=== PATIENT | male | born 1980 | race Caucasian/White ===

== ENCOUNTER 2019-10-22 15:41 | Emergency (ER) | payer SELFPAY ==
[2019-10-22 15:47] VITALS: BP 134/85; PULSE 78; RESP 16; TEMP 36.7; O2SAT 98; BMI 24.3
--- NOTE | 2019-10-22 16:55 | ED_ITS ---
HPI - Male Genitourinary General: Chief complaint: Urogenital-Male Stated complaint: abd pain Time Seen by Provider: 10/22/19 16:55 History of Present Illness: HPI Narrative: 38-year-old in with left-sided abdominal pain this is fairly sharp earlier to day 10 out of 10 pain that radiated down into his scrotum. Patient reports pains L upper little bit he has noticed some decreased urination and abnormal urination is been a little bit nauseated but hasn't vomited doesn't think conservative fevers never had anything like this is never had a kidney stone he denies any other symptoms. Associated symptoms: Reports nausea; Deny vomiting Review of Systems General: Reports: 10 or more systems reviewed and unremarkable except in HPI and below GI: Reports: abdominal pain and nausea; Denies: vomiting, heartburn or change in bowel habits : Reports: flank pain, difficulty urinating, change in urine stream, oliguria and testicular pain Skin/Breast: Denies: rash or pruritus Physical Exam Const: COMMON NORMALS: no acute distress, average body habitus, patient oriented x3, no limitations, healthy appearing, alert and well nourished HENMT: COMMON NORMALS: normocephalic HEAD & SCALP: normocephalic Eye: COMMON NORMALS: Equal, round and reactive pupils present, EOMs intact bilaterally and conjunctivae normal CONJUNCTIVA: Yes conjunctivae normal PUPIL: Yes Equal, round and reactive pupils present Neck/C-Spine: COMMON NORMALS: full ROM, no lymphadenopathy, supple, no meningeal signs, no JVD, Thyroid normal and No carotid bruits THYROID: Thyroid normal Chest: COMMONS NORMALS: normal inspection of the chest and normal palpation of entire chest wall Resp: COMMON NORMALS: normal respiratory effort, No retractions, No use of accessory muscles, clear to auscultation bilaterally and percussion normal AUSCULTATION: clear to auscultation bilaterally PERCUSSION: percussion normal Cardio: COMMON NORMALS: no JVD GI: COMMON NORMALS: Normal to inspection, nondistended, normoactive bowel sounds present, Soft to palpation, non-tender, No hepatosplenomegaly present, no masses and no bruits PALPATION: Yes Soft to palpation and Yes No hepatosplenomegaly present : COMMON NORMALS: Yes no CVA tenderness BLADDER/KIDNEY EXAM: Yes no CVA tenderness Back/Pelvis: COMMON NORMALS: no CVA tenderness Extremity: COMMON NORMALS: normal to inspection, full ROM, capillary refill normal, no joint enlargement, no clubbing, cyanosis or edema, no calf tenderness and no pedal edema Neuro: COMMON NORMALS: patient oriented x3 SENSORIUM/ORIENTATION: Yes alert MENINGEAL SIGNS: Yes no meningeal signs Skin: COMMON NORMALS: no rashes or lesions noted, no wounds, turgor normal, no jaundice, no petechiae and no mottling GENERAL SKIN EXAM: no rashes or lesions noted and turgor normal Course Vital Signs: Vital signs: Vital Signs Temperature 98.1 F 10/22/19 15:47 Pulse Rate 67 10/22/19 19:00 Respiratory Rate 18 10/22/19 19:00 Blood Pressure 127/67 10/22/19 19:00 Pulse Oximetry 100 10/22/19 19:00 MDM - Male MDM Narrative: Medical decision making narrative: discussed differential diagnosis includes ureterolithiasis among others and recommend a CT scan patient had some blood in the urine CT scan was suggestive of maybe a recently passed stone. This could be consistent with his history and physical he was resting comfortably without any pain when I went in there last time. We discussed the likely diagnosis as well some the diagnostic uncertainty the importance of follow-up. He'll need to follow-up with primary care for repeat urinalysis. Return precautions were discussed. Lab Data: Labs: Lab Results 10/22/19 10/22/19 10/22/19 Range/Units 17:40 17:40 18:53 WBC 6.6 (4.0-10.0) 10^3/ uL RBC 4.17 (4.1-5.3) 10^6/u L Hgb 14.6 (11.7-16.6) g/dL Hct 42.3 (42.0-52.0) % MCV 101.4 H (80-94) fL MCH 35.0 H (28.0-34.0) pg MCHC 34.5 (30.0-36.0) g/dL RDW 11.9 L (12.1-15.1) % Plt Count 144 (130-400) 10^3/c mm MPV 12.7 H (7.4-10.4) fL Neut % (Auto) 60.3 % Lymph % (Auto) 23.3 % Wheeler % (Auto) 14.9 % Eos % (Auto) 0.8 % Baso % (Auto) 0.5 % Neut # (Auto) 3.98 (1.8-7.7) 10^3/u L Lymph # (Auto) 1.5 (0.8-4.8) 10^3/u L Wheeler # (Auto) 1.0 H (0.2-0.9) 10^3/u L Eos # (Auto) 0.1 (0.0-0.8) 10^3/u L Baso # (Auto) 0.0 (0.0-0.1) 10^3/u L Nucleated RBC % (a uto) 0 % Nucleated RBCs # 0.0 /100WBC Sodium 134 L (136-145) mmol/L Potassium 3.7 (3.5-5.1) mmol/L Chloride 97 L (98-107) mmol/L Carbon Dioxide 24 (22-29) mmol/L Anion Gap 16.7 (5-19) BUN 4 L (6-20) mg/dL Creatinine 0.7 (0.7-1.2) mg/dL GFR Calculation 126.9 (90-130) mL/min Glucose 84 (65-115) mg/dL Calculated Osmolal ity 273 L (285-295) mOsm/k g Calcium 8.6 (8.5-10.5) mg/dL Total Bilirubin 0.7 (0.15-1.2) mg/dL AST 64 H (0-40) U/L ALT 49 H (0-41) U/L Alkaline Phosphata se 71 (40-130) IU/L Total Protein 6.6 (6.6-8.7) g/dL Albumin 3.9 (3.5-5.2) g/dL Globulin 2.7 (1.3-4.6) g/dL Lipase 40 (13-60) U/L Urine Color Yellow (Yellow) Urine Appearance Clear (CLEAR) Urine pH 5 (5-7) Ur Specific Gravit y 1.020 (1.005-1.030) Urine Protein Neg (Negative) Urine Glucose (UA) Norm (Normal) Urine Ketones 2+ H (Negative) Urine Blood 3+ H (Negative) Urine Nitrate Negative (Negative) Urine Bilirubin Neg (NEGATIVE) Urine Urobilinogen Neg (Negative) mg/dL Ur Leukocyte Danielle ase Negative (Negative) Urine RBC 5-10 H (0-2) /hpf Urine WBC 5-10 H (0-5) /hpf Ur Squamous Epith Cells 0-4 H (0-5) Urine Bacteria Trace (NONE) Urine Mucus Trace Discharge Plan Discharge Patient Disposition: Home, Self-Care Clinical Impression: Kidney stone on left side Condition: Stable Prescriptions: No Action No Known Home Medications RF: 0 Discharge Orders: Discharge Order (Routine); Ordered 10/22/19 Ordered By: Rico Luu Discharge Diet: Advance as tolerated Discharge Activity: Resume usual activity Patient Instructions: Kidney Stones (ED) Coding Level of Care Code ED Middle Card Tender for Geraldo Fwd Exam Comprehensive
--- NOTE | 2019-10-22 17:11 | CTR_ITS ---
PROCEDURE INFORMATION: Exam: CT Abdomen And Pelvis Without Contrast Exam date and time: 10/22/2019 5:17 PM Age: 38 years old Clinical indication: Abdominal pain; Localized; Left; Additional info: Left sided pain TECHNIQUE: Imaging protocol: Computed tomography of the abdomen and pelvis without contrast. Radiation optimization: All CT scans at this facility use at least one of these dose optimization techniques: automated exposure control; mA and/or kV adjustment per patient size (includes targeted exams where dose is matched to clinical indication); or iterative reconstruction. COMPARISON: No relevant prior studies available. RADIATION DOSE METRICS: Total DLP (mGy-cm): 640 FINDINGS: Liver: There is a diffuse decrease in hepatic parenchymal density, consistent with fatty infiltration. Gallbladder and bile ducts: Normal. No calcified stones. No ductal dilation. Pancreas: Normal. No ductal dilation. Spleen: Normal. No splenomegaly. Adrenals: Normal. No mass. Kidneys and ureters: There is no evidence of right hydronephrosis. The left renal pelvis and proximal left ureter slightly more dilated than the right. There is no obstructing calculus. This appearance may reflect recent passage of a stone or urinary tract infection. There is punctate nonobstructive right nephrolithiasis. There are 2 separate 2 mm nonobstructive calculi midpole left kidney. Stomach and bowel: There is no evidence of intestinal perforation or obstruction. There is no evidence of colitis/diverticulitis. Appendix: A normal appendix is identified. Intraperitoneal space: Unremarkable. No free air. No significant fluid collection. Vasculature: Unremarkable.No abdominal aortic aneurysm. Lymph nodes: Unremarkable.No enlarged lymph nodes. Bladder: No calculi are identified in the bladder. There is nonspecific bladder wall thickening. This may be related to incomplete distention. Reproductive: The prostate demonstrates nonspecific parenchymal calcifications. Bones/joints: Unremarkable. No acute fracture. Soft tissues: There is a fat-containing umbilical hernia. CT/CT kidney stone [id number] IMPRESSION: There is nonobstructive nephrolithiasis with no obstructing calculus. The left renal pelvis and proximal left ureter slightly more dilated than the right. This appearance may reflect recent passage of a stone or urinary tract infection. Radiation Dose CTDIVOL = (mGy): DLP = 640 (mGy-cm)
[2019-10-22 17:13] VITALS: RESP 18
[2019-10-22] MEDS: sodium chloride 0.9% 1,000 ML 999 ML IV (17:46)
[2019-10-22] MEDS: ketorolac 30 mg/mL INJ IVP (17:48)
[2019-10-22 17:55] LABS: Basophils % 0.5 %; Eosinophils # 0.1 10^3/uL (0.0-0.8); Eosinophils % 0.8 %; Hematocrit 42.3 % (42.0-52.0); Hemoglobin 14.6 g/dL (11.7-16.6); Lymphocytes # 1.5 10^3/uL (0.8-4.8); Lymphocytes % 23.3 %; Mean Corpuscular HGB Conc 34.5 g/dL (30.0-36.0); Mean Corpuscular Volume 101.4 fL (80-94); Mean Platelet Volume 12.7 fL (7.4-10.4); Monocytes % 14.9 %; Neutrophils # 3.98 10^3/uL (1.8-7.7); Neutrophils % 60.3 %; Nucleated Red Blood Cells % 0 %; Platelet Count 144 10^3/cmm (130-400); Red Blood Count 4.17 10^6/uL (4.1-5.3); Red Cell Distribution Width 11.9 % (12.1-15.1); White Blood Count 6.6 10^3/uL (4.0-10.0)
[2019-10-22 18:11] LABS: Alanine Aminotransferase 49 U/L (0-41); Albumin Level 3.9 g/dL (3.5-5.2); Alkaline Phosphatase 71 IU/L (40-130); Aspartate Amino Transferase 64 U/L (0-40); Blood Urea Nitrogen 4 mg/dL (6-20); Calcium 8.6 mg/dL (8.5-10.5); Carbon Dioxide 24 mmol/L (22-29); Chloride 97 mmol/L (98-107); Globulin 2.7 g/dL (1.3-4.6); Glomerular Filtration Rate 126.9 mL/min (90-130); Glucose 84 mg/dL (65-115); Lipase 40 U/L (13-60); Osmolality Calculated 273 mOsm/kg (285-295); Sodium 134 mmol/L (136-145); Total Bilirubin 0.7 mg/dL (0.15-1.2); Total Protein 6.6 g/dL (6.6-8.7)
[2019-10-22 18:13] VITALS: BP 123/76; PULSE 67; RESP 18; O2SAT 100
[2019-10-22 18:36] LABS: Anion Gap 16.7 (5-19); Potassium 3.7 mmol/L (3.5-5.1)
[2019-10-22 19:00] VITALS: BP 127/67; PULSE 67; RESP 18; O2SAT 100
[2019-10-22 19:28] LABS: Urine Appearance Clear (CLEAR); Urine Color Yellow (Yellow); pH Urine 5 (5-7)
[2019-10-22 19:29] LABS: Bilirubin Urine Neg (NEGATIVE); Blood Urine 3+ (Negative); Glucose Urine UA Norm (Normal); Ketones Urine 2+ (Negative); Leukocyte Esterase Urine Negative (Negative); Nitrate Urine Negative (Negative); Protein Urine Neg (Negative); Urobilinogen Urine Neg (Negative)
[2019-10-22 19:30] LABS: Bacteria Urine TRACE; Mucus Urine TRACE; Squamous Epithelial Cell Urine 0-4 (0-5)
[2019-10-22 19:31] LABS: Add Urine Culture? No
[2019-10-22 20:00] VITALS: BP 150/87; PULSE 77; RESP 18; O2SAT 100
== END 2019-10-22 20:51 | disposition home or self-care (01) ==
PROVIDERS: Nurse Practitioner Family; Emergency Provider Family Medicine
DX: N20.0 Calculus of kidney (principal)
CPT/HCPCS: 12345; 74176; 80053; 81001; 83690; 85025; 96361; 96374; 96375; 99283; J1885; J7030

== ENCOUNTER 2021-07-29 08:49 | Emergency (ER) | payer SELFPAY ==
--- NOTE | 2021-07-29 08:53 | XRR_ITS ---
PROCEDURE INFORMATION: Exam: XR Chest Exam date and time: 07/29/2021 9:11 AM Age: 40 years old Clinical indication: Pain; Chest pressure; Additional info: Chest pain TECHNIQUE: Imaging protocol: XR of the chest. Views: 1 view. COMPARISON: CR Chest 1 [place] [id number] 09/04/2016 1:26 PM FINDINGS: Lungs: Unremarkable. No consolidation. Pleural spaces: Unremarkable. No pleural effusion. No pneumothorax. Heart/Mediastinum: Unremarkable. No cardiomegaly. Bones/joints: Unremarkable. XR/XR chest 1V portable [id number] IMPRESSION: No acute findings.
[2021-07-29 08:57] VITALS: BP 120/84; PULSE 86; RESP 16; O2SAT 97
--- NOTE | 2021-07-29 09:05 | ED_ITS ---
HPI - Chest Pain General: Chief Complaint: Chest Pain Stated Complaint: CHEST PAIN Time Seen by Provider: 07/29/21 08:52 Source: patient and EMS Mode of arrival: EMS Limitations: no limitations History of Present Illness: Patient is a 40-year-old male who presents to ED today with a complaint of an episode of chest pain that first started around 4 AM this morning when he awoke. Patient states pain stayed fairly constant while at work this morning and he states he had an episode of dizziness and ebonie phoresis this prompted him to call EMS. He states while in route to the hospital he received IV fluids and states upon arrival to the ED his chest pain has vastly improved. He is currently rating his pain at a 0 during my initial examination. Patient tells me he has had multiple episodes of chest pains over the past several months. He thinks this could stem from anxiety as he has had a significant life stressor during that time that he does not want to elaborate on. Patient has no previous cardiac or pulmonary history. He does state his father was diagnosed with cardiac disease in his 40s but states it was secondary to endocarditis following a procedure. Patient states he is not having shortness of breath or difficulty breathing. He has not noticed any calf pain or lower extremity swelling. Pain does not seem to be brought on by exertion. MD complaint: chest pain Onset (ago): hour(s) Timing of current episode: episodic Prior episodes: Yes Onset: during rest Pain location: left chest Relieving factors: nothing Exacerbating factors: nothing Associated symptoms: Reports no associated symptoms; Deny abdominal pain, dyspnea, fever(s), nausea, palpitations, syncope or vomiting Treatment prior to arrival: none Review of Systems Const: Denies: fever(s), chills, body aches, fatigue or malaise Card: Reports: chest pain (resolved now) and lightheadedness (resolved now); Denies: palpitations, irregular heart rhythm, edema, swelling of feet/ankles, syncope, dyspnea on exertion or orthopnea Resp: Denies: dyspnea, productive cough, wheezing, hemoptysis or chest con gestion GI: Denies: abdominal pain, nausea, vomiting or diarrhea Musc: Denies: neck pain, back pain, extremity pain or joint pain Neuro: Denies: headache(s), numbness in extremities, weakness in extremities or sensory changes FORMERLY [facility], 1928–1983 ED PFSH: Social History Smoking and tobacco status: current every day smoker Physical Exam Const: COMMON NORMALS: no acute distress, average body habitus, patient oriented x3, no limitations, healthy appearing, alert and well nourished HENMT: COMMON NORMALS: normocephalic and atraumatic HEAD & SCALP: normal to inspection, normocephalic and atraumatic Neck/C-Spine: COMMON NORMALS: no JVD GENERAL: Yes normal visual inspection Chest: COMMONS NORMALS: normal inspection of the chest and normal palpation of entire chest wall Resp: COMMON NORMALS: normal respiratory effort and clear to auscultation bilaterally AUSCULTATION: clear to auscultation bilaterally Cardio: COMMON NORMALS: no JVD, regular rate and regular rhythm RATE: regular rate RHYTHM: regular rhythm GI: COMMON NORMALS: Normal to inspection, nondistended, normoactive bowel sounds present, Soft to palpation, non-tender, No hepatosplenomegaly present and no masses PALPATION: Yes Soft to palpation and Yes No hepatosplenomegaly present Extremity: COMMON NORMALS: normal to inspection, no calf tenderness and no pedal edema GENERAL: Yes normal exam except as noted Neuro: BRANDY COMA SCALE: document GCS findings [place] coma scale eye opening: Spontaneous [place] coma scale verbal response: Orientated [place] coma scale motor response: Obey commands [place] coma scale total score: 15 COMMON NORMALS: patient oriented x3, moves all extremities, no focal motor deficits and no sensory deficits noted SENSORIUM/ORIENTATION: Yes alert Skin: COMMON NORMALS: no rashes or lesions noted GENERAL SKIN EXAM: no rashes or lesions noted Course Vital Signs: Vital signs: Vital Signs Pulse Rate 104 H 07/29/21 10:52 Respiratory Rate 16 07/29/21 10:52 Blood Pressure 147/92 07/29/21 10:52 Pulse Oximetry 97 07/29/21 10:52 [facility] - Chest Pain Medical Decision Making Patient is a 40-year-old male that has had intermittent chest pains for months now. Chest pains do not seem to be worsened with exertion. He has had a significant life stressor and thinks maybe these could be secondary to anxiety. Patient states all of his chest pains have alleviated upon arrival to the ED. Symptoms have not returned throughout his visit. His vital signs are stable. Lab work including baseline troponin is unremarkable. EKG shows no ischemic changes. CXR is normal. Heart score at this time is 1-2. Patient does not have a primary care provider. Case management referral placed for this. They can further evaluate patient and order outpatient stress test if they feel this is indicated. Strict return to ED precautions were verbally discussed with patient. Lab Data : 07/29/21 10:14 07/29/21 10:14 Radiology Impressions Chest X-Ray 07/29/21 08:53 IMPRESSION: No acute findings. Laboratory Results WBC 9.1 10^3/uL (4.0-10.0) 07/29/21 10:14 RBC 4.49 10^6/uL (4.1-5.3) 07/29/21 10:14 Hgb 14.7 g/dL (11.7-16.6) 07/29/21 10:14 Hct 43.2 % (42.0-52.0) 07/29/21 10:14 MCV 96.2 fl (80-94) H 07/29/21 10:14 MCH 32.7 pg (28.0-34.0) 07/29/21 10:14 MCHC 34.0 g/dL (30.0-36.0) 07/29/21 10:14 RDW 12.0 % (12.1-15.1) L 07/29/21 10:14 Plt Count 239 10^3/cmm (130-400) 07/29/21 10:14 MPV 10.6 fL (7.4-10.4) H 07/29/21 10:14 Neut % (Auto) 75.3 % 07/29/21 10:14 Lymph % (Auto) 11.8 % 07/29/21 10:14 [place] % (Auto) 11.8 % 07/29/21 10:14 Eos % (Auto) 0.3 % 07/29/21 10:14 Baso % (Auto) 0.5 % 07/29/21 10:14 Neut # (Auto) 6.86 10^3/uL (1.8-7.7) 07/29/21 10:14 Lymph # (Auto) 1.1 10^3/uL (0.8-4.8) 07/29/21 10:14 [place] # (Auto) 1.1 10^3/uL (0.2-0.9) H 07/29/21 10:14 Eos # (Auto) 0.0 10^3/uL (0.0-0.8) 07/29/21 10:14 Baso # (Auto) 0.1 10^3/uL (0.0-0.1) 07/29/21 10:14 Nucleated RBC % (auto) 0 % 07/29/21 10:14 Nucleated RBCs # 0.0 /100WBC 07/29/21 10:14 Sodium 141 mmol/L (136-145) 07/29/21 10:14 Potassium 3.7 mmol/L (3.5-5.1) 07/29/21 10:14 Chloride 101 mmol/L (98-107) 07/29/21 10:14 Carbon Dioxide 27 mmol/L (22-29) 07/29/21 10:14 Anion Gap 16.7 (5-19) 07/29/21 10:14 BUN 7 mg/dL (6-20) 07/29/21 10:14 Creatinine 0.6 mg/dL (0.7-1.2) L 07/29/21 10:14 GFR Calculation 150.0 mL/min (90-130) H 07/29/21 10:14 Glucose 112 mg/dL (65-115) 07/29/21 10:14 Calculated Osmolality 291 mOsm/kg (285-295) 07/29/21 10:14 Calcium 8.8 mg/dL (8.5-10.5) 07/29/21 10:14 Total Bilirubin 0.8 mg/dL (0.15-1.2) 07/29/21 10:14 AST 21 U/L (0-40) 07/29/21 10:14 ALT 13 U/L (0-41) 07/29/21 10:14 Alkaline Phosphatase 54 IU/L (40-130) 07/29/21 10:14 Troponin T Baseline 6 ng/L (0-15) 07/29/21 10:14 Total Protein 6.9 g/dL (6.6-8.7) 07/29/21 10:14 Albumin 4.5 g/dL (3.5-5.2) 07/29/21 10:14 Globulin 2.4 g/dL (1.3-4.6) 07/29/21 10:14 Discharge Plan Discharge Patient Disposition: Home Clinical Impression: Chest pain Condition: Stable Prescriptions: No Action No Known Home Medications 0RF Discharge Orders: Discharge ED (Routine); Ordered 07/29/21 Ordered By: Jonelle Holder Patient Instructions: Chest Pain (ED) Coding Level of Care Code ED Neighborhood Planner for Geraldo Galvez
[2021-07-29 10:22] LABS: Basophils # 0.1 10^3/uL (0.0-0.1); Basophils % 0.5 %; Eosinophils % 0.3 %; Hematocrit 43.2 % (42.0-52.0); Hemoglobin 14.7 g/dL (11.7-16.6); Lymphocytes # 1.1 10^3/uL (0.8-4.8); Lymphocytes % 11.8 %; Mean Corpuscular Hemoglobin 32.7 pg (28.0-34.0); Mean Corpuscular Volume 96.2 fl (80-94); Mean Platelet Volume 10.6 fL (7.4-10.4); Monocytes # 1.1 10^3/uL (0.2-0.9); Monocytes % 11.8 %; Neutrophils # 6.86 10^3/uL (1.8-7.7); Neutrophils % 75.3 %; Nucleated Red Blood Cells % 0 %; Platelet Count 239 10^3/cmm (130-400); Red Blood Count 4.49 10^6/uL (4.1-5.3); White Blood Count 9.1 10^3/uL (4.0-10.0)
[2021-07-29 10:52] VITALS: BP 147/92; PULSE 104; RESP 16; O2SAT 97
--- NOTE | 2021-07-29 10:53 | ECG_ITS ---
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 Measurements Intervals Beecher Rate: 80 P: 53 AK: 139 QRS: 71 QRSD: 114 T: 67 QT: 385 QTc: 444 Interpretive Statements SINUS RHYTHM MODERATE INTRAVENTRICULAR CONDUCTION DELAY [110+ ms QRS DURATION] Compared to ECG 09/04/2016 13:32:37 Intraventricular conduction delay now present Electronically Signed On 07-30-2021 19:35:19 CDT by Edinson Howell M.D. [id number]
[2021-07-29 11:05] LABS: Alanine Aminotransferase 13 U/L (0-41); Albumin Level 4.5 g/dL (3.5-5.2); Alkaline Phosphatase 54 IU/L (40-130); Anion Gap 16.7 (5-19); Aspartate Amino Transferase 21 U/L (0-40); Blood Urea Nitrogen 7 mg/dL (6-20); Calcium 8.8 mg/dL (8.5-10.5); Carbon Dioxide 27 mmol/L (22-29); Chloride 101 mmol/L (98-107); Creatinine Clr Calc Pharmacy 167.0475; Globulin 2.4 g/dL (1.3-4.6); Glucose 112 mg/dL (65-115); Osmolality Calculated 291 mOsm/kg (285-295); Potassium 3.7 mmol/L (3.5-5.1); Sodium 141 mmol/L (136-145); Total Bilirubin 0.8 mg/dL (0.15-1.2); Total Protein 6.9 g/dL (6.6-8.7)
[2021-07-29 11:08] LABS: Troponin(5th) Baseline 6 ng/L (0-15)
[2021-07-29 12:37] VITALS: BP 152/91; PULSE 100; RESP 16; O2SAT 96
--- NOTE | 2021-08-03 14:25 | DCPLANNER ---
regional branch manager had message to speak with patient about getting established with a primary care physician. regional branch manager called phone number [phone], unable to speak with patient at this time. regional branch manager did leave a voicemail for patient to return comp field case manager phone call.
== END 2021-07-29 12:38 | disposition home or self-care (01) ==
PROVIDERS: Emergency Provider Physician Assistant
DX: R07.9 Chest pain, unspecified (principal); F17.200 Nicotine dependence, unspecified, uncomplicated
CPT/HCPCS: 36415; 71045; 80053; 84484; 85025; 93005; 99283